=== PATIENT | male | born 1970 | race Caucasian/White ===

== ENCOUNTER 2016-12-19 00:01 | Emergency (ER) | payer MEDICAID ==
[~2016-12-19] VITALS: Ht 175.3 cm; Wt 99.8 kg
[~2016-12-19 00:01] MED LIST: AMITRIPTYLINE25 MG PO; AZITHROMYCIN250 MG PO; CEFDINIR 300MG300 MG PO; CIPRO 500MG TA500 MG PO; CORTISPORIN (GE10 M1 OT; LEVAQUIN500 MG PO; LORTAB 5/500 501 TAB PO; NEXIUM20 MG PO; NOMEDS; OXYCODONE HCL15 MG PO; PERCOCET 10 MG1 EACH PO; PREDNISONE 10MG10 MG PO; VOLTAREN75 MG PO; XANAX 1MG TABLET1 MG PO; ZITHROMAX Z-PA250 M1 PO
[2016-12-19] MEDS ORDERED: NEURONTIN400 M1 PO (00:28)
--- OUTSIDE RECORDS SUMMARY | 2016-12-19 00:34 | External Medical Summary Rpt | CCD ---
Author Author , CARIDAD MCLEAN Address Unknown Phone [email or web address] Name Relationship Address Phone JOSEPHINE, Next Of Kin [address]1 [facility] [phone] , [place] [address] Care Team Providers Care Tester Regulator Name Role Phone Sima Patsy INTERNET MARKETING ASSISTANT, Unavailable Unavailable Sima Garner INTERNET MARKETING ASSISTANT Purpose Continuity of Care Document - 07-30-2012 through 2016 Problems Code Diagnosis DOS Provider Status E11.9 Type 2 10-28-2014 diabetes mellitus without complicatio ns 276.8 Hypokalemia [facility] 724.5 Chronic [place] back pain [facility] 728.88 Rhabdomyoly [facility] 977.9 Drug [place] overdose [facility] K52.9 Noninfectiv e gastroenter itis and colitis, unspecified L72.0 Epidermal cyst M54.16 Radiculopat hy, lumbar region R11.2 Nausea with vomiting, unspecified Z72.0 Tobacco use Z79.899 Other fdc (current) drug therapy Allergies, Adverse Reactions, Alerts Type Drug Allergy Adverse Reaction to Substance Substance Reaction Severity Penicillin I-RASH Intermediate Medications Na ND Rx Da Fi Fi Am Da Di Ph RX Ph St me C No te ll ll ou ys ag ar # ys at rm s nt no ma ic us Or Da si cy ia de te s n re d PO 00 06 0 No TA 40 -1 SS 99 7- Lo IU 25 20 ng M 73 13 er CL 9 Ac 20 ti ve ME Q- 0. 45 % NA CL Ni 00 06 0 No co 06 -1 ti 70 7- Lo ne 81 20 ng 02 13 er 21 1 MG Ac /2 ti 4H ve R Pa tc h SO 00 06 0 No DI 40 -1 UM 97 6- Lo 98 20 ng CH 30 13 er LO 9 RI Ac DE ti ve 0. 9% SO MELISSA TI ON Sa 63 06 1 No li 80 -1 ne 70 6- Lo 10 20 ng Fl 07 13 er us 5 h Ac 10 ti ML ve Sy ri ng e SO 00 06 0 No DI 40 -1 UM 96 6- Lo 63 20 ng BI 73 13 er CA 4 RB Ac ti 8. ve 4% AB VENICE JE CT LO 00 06 0 No RA 64 -1 ZE 16 6- Lo PA 04 20 ng M 82 13 er 2 5 MG Ac /M ti L ve AL Sa 63 06 1 No li 80 -1 ne 70 6- Lo 10 20 ng Fl 07 13 er us 5 h Ac 10 ti ML ve Sy ri ng e Vital Signs 07-31-2012 19:49 Name Value Interpretat Reference Comment ion Range Body 98.1 [degF] Temperature BP 70 mm[Hg] Diastolic BP Systolic 137 mm[Hg] Heart 127 /min Rate/Pulse O2% 96 % Respiratory 22 /min Rate 07-30-2012 12:55 Name Value Interpretat Reference Comment ion Range Height 177.80 cm Weight 98.941 kg Measured 07-30-2012 09:14 Name Value Interpretat Reference Comment ion Range BP 71 mm[Hg] Diastolic BP Systolic 123 mm[Hg] 07-30-2012 08:23 Name Value Interpretat Reference Comment ion Range Body 97.8 [degF] Temperature Heart 90 /min Rate/Pulse O2% 92 % Respiratory 22 /min Rate Weight 0 [oz_av] Measured Results Labs Lab Lab Date Result Refere Interp Status Commen Order Detail nces retati t Range on BASIC METABOLIC PANEL (07-31-2012 05:10) Glucose 90 74-106 complet 013 mg/dL ed Bld-mCn 05:10 c BUN 8 mg/dL 7-18 complet Bld-mCn 013 ed c 05:10 Creat 0.9 0.8-1.3 complet SerPl-m 013 mg/dL ed Cnc 05:10 ESTIMAT 148 50-200 complet ED 013 ML/MIN ed CREATIN 05:10 INE CLEARAN CE GFR 92 Greater complet (ESTIMA 013 ML/MIN than ed TIFFANIE) 05:10 60 Sodium 141 136-145 complet SerPl-s 013 mmoL/L ed Cnc 05:10 Potassi 3.4 3.5-5.1 complet um 013 mmoL/L ed SerPl-s 05:10 Cnc Chlorid 06-17-2 107 98-107 complet e 013 mmoL/L ed SerPl-s 05:10 Cnc CO2 -17-2 26 21.0-32 complet SerPl-s 013 mmoL/L .0 ed Cnc 05:10 Calcium -17-2 7.9 8.5-10. complet 013 mg/dL 1 ed SerPl-m 05:10 Cnc CBC with AUTO DIFF (07-31-2012 05:10) WBC # 06-17-2 12.4 4.8-10. complet Bld 013 K/MM3 8 ed Auto 05:10 RBC # 06-17-2 4.45 4.6-6.2 complet Bld 013 M/mm3 ed Auto 05:10 Hgb -17-2 13.5 14.1-18 complet Bld-mCn 013 g/dL .0 ed c 05:10 Hct Fr -17-2 39.9 % 42.0-52 complet Bld 013 .0 ed 05:10 MCV RBC -17-2 89.6 fl 82.2-97 complet 013 .8 ed 05:10 MCH RBC -17-2 30.2 pg 27-31.2 complet Qn 013 ed Auto 05:10 MEAN -17-2 33.7 31.8-35 complet CORPUSC 013 g/dl .4 ed ULAR 05:10 HGB CONC RDW RBC -17-2 13.3 % 11.5-17 complet Auto 013 .5 ed 05:10 Platele -17-2 220 142-424 complet t Bld 013 K/mm3 ed Ql 05:10 Manual MEAN -17-2 7.6 fl 7.4-10. complet PLATELE 013 4 ed T 05:10 VOLUME Granulo -17-2 71.7 % 37.0-80 complet cytes 013 .0 ed Fr Bld 05:10 Auto LYMPH % 06-17-2 23.0 % 10-50 complet 013 ed 05:10 Monocyt 06-17-2 4.6 % 1.7-9.3 complet es Fr 013 ed Bld 05:10 Auto Eosinop 06-17-2 0.5 % 0.1-12. complet hil Fr 013 0 ed Bld 05:10 Auto Basophi 06-17-2 0.2 % 0.1-2.0 complet ls Fr 013 ed Bld 05:10 Auto Granulo 06-17-2 8.9 1.3-8.0 complet cytes # 013 K/mm3 ed Bld 05:10 Auto Lymphoc 06-17-2 2.8 0.7-4.5 complet ytes Fr 013 K/mm3 ed Bld 05:10 Auto Monocyt 06-17-2 0.6 0.1-1.0 complet es # 013 K/mm3 ed Bld 05:10 Auto Eosinop 06-17-2 0.1 0.0-0.4 complet hil # 013 K/mm3 ed Bld 05:10 Auto Basophi 06-17-2 0.0 0-0.2 complet ls # 013 K/MM3 ed Bld 05:10 Auto URINALYSIS/COMPLETE (07-30-2012 09:30) URINE 06-16-2 YELLOW YELLOW complet COLOR 013 ed 09:30 URINE 06-16-2 CLEAR CLEAR complet APPEARA 013 ed NCE 09:30 URINE 06-16-2 NEGATIV NEG complet GLUCOSE 013 E ed - 09:30 DIPSTIC K URINE 06-16-2 NEGATIV NEG complet BILIRUB 013 E ed IN - 09:30 DIPSTIC K URINE 06-16-2 NEGATIV NEG complet KETONE 013 E mg/dL ed 09:30 URINE 06-16-2 1.020 1.005-1 complet SPECIFI 013 UNK .030 ed C 09:30 GRAVITY URINE 06-16-2 NEGATIV NEG complet BLOOD 013 E ed 09:30 URINE 06-16-2 6.0 UNK 5.0-8.5 complet PH 013 ed 09:30 URINE 06-16-2 NEGATIV NEG complet PROTEIN 013 E mg/dL ed - 09:30 DIPSTIC K URINE 06-16-2 0.2 NEG complet UROBILI 013 E.U./dL ed NOGEN - 09:30 DIPSTIC K URINE 06-16-2 NEGATIV NEG complet NITRATE 013 E ed - 09:30 DIPSTIC K URINE 06-16-2 NEGATIV NEG complet LEUK 013 E ed ESTERAS 09:30 E URINE 06-16-2 TRACE O complet BACTERI 013 ed A 09:30 COMPREHENSIVE METABOLIC PANEL (07-30-2012 08:45) Glucose 06-16-2 139 74-106 complet 013 mg/dL ed Bld-mCn 08:45 c BUN 07-30-2 16 7-18 complet Bld-mCn 013 mg/dL ed c 08:45 Creat 07-30-2 1.2 0.8-1.3 complet SerPl-m 013 mg/dL ed Cnc 08:45 ESTIMAT 07-30-2 102 50-200 complet ED 013 ML/MIN ed CREATIN 08:45 INE CLEARAN CE GFR 2 66 Greater complet (ESTIMA 013 ML/MIN than ed TIFFANIE) 08:45 60 Sodium 07-30-2 139 136-145 complet SerPl-s 013 mmoL/L ed Cnc 08:45 Potassi 3.9 3.5-5.1 complet um 013 mmoL/L ed SerPl-s 08:45 Cnc Chlorid 105 98-107 complet e 013 mmoL/L ed SerPl-s 08:45 Cnc CO2 28 21.0-32 complet SerPl-s 013 mmoL/L .0 ed Cnc 08:45 Calcium 8.1 8.5-10. complet 013 mg/dL 1 ed SerPl-m 08:45 Cnc Prot 6.8 6.4-8.2 complet SerPl-m 013 gm/dL ed Cnc 08:45 Albumin 07-30-2 3.9 3.4-5.0 complet 013 gm/dL ed SerPl-m 08:45 Cnc Globuli 2.9 1.3-3.2 complet n 013 gm/dL ed Ser-mCn 08:45 c Albumin 2 1.3 UNK 1.1-1.8 complet /Glob 013 ed SerPl-m 08:45 Rto Bilirub 0.7 0.2-1.0 complet 013 mg/dL ed SerPl-m 08:45 Cnc AST 07-30-2 42 U/L 15-37 complet SerPl-c 013 ed Cnc 08:45 ALT 07-30-2 47 U/L 30-65 complet SerPl-c 013 ed Cnc 08:45 ALP 2 84 U/L 50-136 complet SerPl-c 013 ed Cnc 08:45 Acetamin SerPl-mCnc (07-30-2012 08:45) Acetami 06-16-2 0 ug/mL 10-30 complet n 013 ed SerPl-m 08:45 Cnc Ethanol Bld-mCnc (07-30-2012 08:45) Ethanol 06-16-2 0 mg/dL 0-99 complet 013 ed Bld-mCn 08:45 c Salicylates SerPl-mCnc (07-30-2012 08:45) Salicyl 06-16-2 3.4 2.8-20. complet ates 013 mg/dL 0 ed SerPl-m 08:45 Cnc CBC with AUTO DIFF (07-30-2012 08:45) WBC # 06-16-2 16.9 4.8-10. complet Bld 013 K/MM3 8 ed Auto 08:45 RBC # 06-16-2 4.89 4.6-6.2 complet Bld 013 M/mm3 ed Auto 08:45 Hgb 06-16-2 14.7 14.1-18 complet Bld-mCn 013 g/dL .0 ed c 08:45 Hct Fr 06-16-2 43.6 % 42.0-52 complet Bld 013 .0 ed 08:45 MCV RBC 06-16-2 89.1 fl 82.2-97 complet 013 .8 ed 08:45 MCH RBC 06-16-2 30.1 pg 27-31.2 complet Qn 013 ed Auto 08:45 MEAN 06-16-2 33.8 31.8-35 complet CORPUSC 013 g/dl .4 ed ULAR 08:45 HGB CONC RDW RBC 06-16-2 13.2 % 11.5-17 complet Auto 013 .5 ed 08:45 Platele 06-16-2 252 142-424 complet t Bld 013 K/mm3 ed Ql 08:45 Manual MEAN 06-16-2 7.5 fl 7.4-10. complet PLATELE 013 4 ed T 08:45 VOLUME Granulo 06-16-2 84.7 % 37.0-80 complet cytes 013 .0 ed Fr Bld 08:45 Auto LYMPH % 06-16-2 10.2 % 10-50 complet 013 ed 08:45 Monocyt 06-16-2 4.4 % 1.7-9.3 complet es Fr 013 ed Bld 08:45 Auto Eosinop 06-16-2 0.6 % 0.1-12. complet hil Fr 013 0 ed Bld 08:45 Auto Basophi 06-16-2 0.2 % 0.1-2.0 complet ls Fr 013 ed Bld 08:45 Auto Granulo -16-2 14.3 1.3-8.0 complet cytes # 013 K/mm3 ed Bld 08:45 Auto Lymphoc 06-16-2 1.7 0.7-4.5 complet ytes Fr 013 K/mm3 ed Bld 08:45 Auto Monocyt 06-16-2 0.8 0.1-1.0 complet es # 013 K/mm3 ed Bld 08:45 Auto Eosinop 06-16-2 0.1 0.0-0.4 complet hil # 013 K/mm3 ed Bld 08:45 Auto Basophi 06-16-2 0.0 0-0.2 complet ls # 013 K/MM3 ed Bld 08:45 Auto ARTERIAL BLOOD GAS (07-30-2012 08:22) ARTERIA 07-30-2 7.40 7.35-7. complet L PH 013 MMOL/L 45 ed 08:22 ARTERIA 16-2 36.0 35.0-45 complet L PCO2 013 MMHG .0 ed 08:22 ARTERIA 07-30-2 107.0 80-100 complet L PO2 013 MMHG ed 08:22 ARTERIA 16-2 22.0 22.0-26 complet L HCO3 013 MMOL/L .0 ed 08:22 ARTERIA 16-2 21.0 23-27 complet L TCO2 013 MMOL/L ed 08:22 Base 07-30-2 -2.4 -2.4-+2 complet excess 013 MMOL/L .3 ed BldA-sC 08:22 nc ARTERIA 2 98 % 90-100 complet L O2 013 ed SAT 08:22 OXYGEN 21 UNK complet 013 ed 08:22 Arteria 07-30-2 ACCEPTA complet l 013 BLE ed patency 08:22 Wrist a SOURCE RIGHT complet 013 RADIAL ed 08:22 Encounters Encounter Start End Date Code Location Performer Type Date Inpatient IMP [place] ([place] 3 09:35 3 20:02 [facility]
--- OUTSIDE RECORDS SUMMARY | 2016-12-19 00:34 | External Medical Summary Rpt | CCD ---
Author Author , CARIDAD MCLEAN Address Unknown Phone [email or web address] Name Relationship Address Phone JOSEPHINE, Next Of Kin [address]1 [facility] [phone] , [place] [address] Care Team Providers Care Substation Supervisor Name Role Phone Sima Patsy BANKING SERVICES ADVISOR, Unavailable Unavailable Sima Garner BANKING SERVICES ADVISOR Purpose Continuity of Care Document - 07-30-2012 through 2016 Problems Code Diagnosis DOS Provider Status E11.9 Type 2 10-28-2014 diabetes mellitus without complicatio ns 276.8 Hypokalemia [facility] 724.5 Chronic [place] back pain [facility] 728.88 Rhabdomyoly [facility] 977.9 Drug [place] overdose [facility] K52.9 Noninfectiv e gastroenter itis and colitis, unspecified L72.0 Epidermal cyst M54.16 Radiculopat hy, lumbar region R11.2 Nausea with vomiting, unspecified Z72.0 Tobacco use Z79.899 Other fci (current) drug therapy Allergies, Adverse Reactions, Alerts [...] [place] ([place]) 3 09:35 3 20:02 [facility]
--- OUTSIDE RECORDS SUMMARY | 2016-12-19 00:35 | External Medical Summary Rpt | CCD ---
Demographics Preferred Language Singaporean Marital Status Unknown Voodoo Affiliation Unknown Race Unknown Ethnic Group Unknown Author Author , JOVI MCLEAN Address Unknown Phone Immunization Unable to retrieve immunization data due to connection failure with Immunization Registry. Please try again later.
--- OUTSIDE RECORDS SUMMARY | 2016-12-19 00:35 | External Medical Summary Rpt | CCD ---
Demographics Address [address] [place] [address] Preferred Language Faroese Marital Status Unknown Mu-Ism Affiliation Unknown Race W Ethnic Group Unknown Author Author Conduent Organization Conduent Address Unknown Phone Unavailable Purpose Continuity of Care Document - through 2016
--- OUTSIDE RECORDS SUMMARY | 2016-12-19 00:35 | External Medical Summary Rpt | CCD ---
Demographics Address [address] [place] [address] Preferred Language Khmer Marital Status Unknown Worship Affiliation Unknown Race W Ethnic Group Unknown Author Author Conduent Organization Conduent Address Unknown Phone Unavailable Purpose Continuity of Care Document - through 2016
--- OUTSIDE RECORDS SUMMARY | 2016-12-19 00:35 | External Medical Summary Rpt | CCD ---
Demographics Preferred Language [place] Islander Marital Status Unknown Episcopal Affiliation Unknown Race Unknown Ethnic Group Unknown Author Author , JOVI MCLEAN Address Unknown Phone Immunization Unable to retrieve immunization data due to connection failure with Immunization Registry. Please try again later.
--- OUTSIDE RECORDS SUMMARY | 2016-12-19 00:36 | External Medical Summary Rpt ---
Demographics Address [address] [place] [address] Home Phone Preferred Language Unknown Marital Status Unknown Mormon Affiliation Unknown Race Unknown Ethnic Group Unknown Author Author CARIDAD Kendall, [employer] Organization [employer] Address Unknown Phone Unavailable Results Glu Bed Observa Value Referen Units Interpr Notes Date tion ce etation Range GLU BED 107 70 - mg/dL High No Oct 14 100 informa 2017 tion in 11:50 source AM data Sample Capilla No No No No Oct 14 Type ry informa informa informa informa 2017 tion in tion in tion in tion in 11:50 source source source source AM data data data data Patient Non-Cri No No No No Oct 14 tical informa informa informa informa 2017 Critica Patient tion in tion in tion in tion in 11:50 l source source source source AM Status data data data data [facility] Observa Value Referen Units Interpr Notes Date tion ce etation Range Codeine Not No No No No June 25 Detecte informa informa informa informa 2016 (cutoff d tion in tion in tion in tion in 11:56 40 source source source source AM ng/mL)- data data data data [facility] Morphin Not No No No No June 25 e Detecte informa informa informa informa 2016 (cutoff d tion in tion in tion in tion in 11:56 20 source source source source AM ng/mL)- data data data data [facility] 6-acety Not No No No No June 25 lmorphi Detecte informa informa informa informa 2016 ne d tion in tion in tion in tion in 11:56 (cutoff source source source source AM 20 data data data data ng/mL)- [facility] Oxycodo Not No No No No June 25 ne Detecte informa informa informa informa 2016 (cutoff d tion in tion in tion in tion in 11:56 40 source source source source AM ng/mL)- data data data data [facility] Noroxyc Not No No No No June 25 odone Detecte informa informa informa informa 2016 (cutoff d tion in tion in tion in tion in 100 source source source source AM ng/mL)- data data data data [facility] Oxymorp Not No No No No June 25 ramin Detecte informa informa informa informa 2016 (cutoff d tion in tion in tion in tion in 40 source source source source AM ng/mL)- data data data data [facility] Noroxym Not No No No No June 25 orphone Detecte informa informa informa informa 2016 d tion in tion in tion in tion in (cutoff source source source source AM 100 data data data data ng/mL)- [facility] Hydroco Not No No No No June 25 done Detecte informa informa informa informa 2016 (cutoff d tion in tion in tion in tion in 40 source source source source AM ng/mL)- data data data data [facility] Norhydr Not No No No No June 25 ocodone Detecte informa informa informa informa 2016 d tion in tion in tion in tion in (cutoff source source source source AM 100 data data data data ng/mL)- [facility] Hydromo Not No No No No June 25 rphone Detecte informa informa informa informa 2016 (cutoff d tion in tion in tion in tion in 40 source source source source AM ng/mL)- data data data data [facility] Bupreno Not No No No No June 25 rphine Detecte informa informa informa informa 2016 (cutoff d tion in tion in tion in tion in 5 source source source source AM ng/mL)- data data data data [facility] Norbupr Not No No No No June 25 enorphi Detecte informa informa informa informa 2016 ne d tion in tion in tion in tion in (cutoff source source source source AM 20 data data data data ng/mL)- [facility] Fentany Not No No No No June 25 l Detecte informa informa informa informa 2016 (cutoff d tion in tion in tion in tion in 2 source source source source AM ng/mL)- data data data data [facility] Norfent Not No No No No June 25 anyl Detecte informa informa informa informa 2016 (cutoff d tion in tion in tion in tion in 11:56 2 source source source source AM ng/mL)- data data data data [facility] Meperid Not No No No No June 25 ine Detecte informa informa informa informa 2017 metabol d tion in tion in tion in tion in 11:56 ite source source source source AM (cutoff data data data data 50 ng/mL) Tapenta Not No No No No June 25 dol Detecte informa informa informa informa 2016 (cutoff d tion in tion in tion in tion in 11:56 100 source source source source AM ng/mL)- data data data data [facility] Tapenta Not No No No No June 25 dol-o-S Detecte informa informa informa informa 2016 ulf d tion in tion in tion in tion in 11:56 (cutoff source source source source AM 200 data data data data ng/mL)- [facility] Methado Not No No No No June 25 ne Detecte informa informa informa informa 2016 (cutoff d tion in tion in tion in tion in 11:56 150 source source source source AM ng/mL)- data data data data [facility] Propoxy Not No No No No June 25 phene Detecte informa informa informa informa 2016 (cutoff d tion in tion in tion in tion in :56 300 source source source source AM ng/mL)- data data data data [facility] Tramado Present No No No No June 25 l informa informa informa informa 2016 (cutoff tion in tion in tion in tion in 11:56 200 source source source source AM ng/mL)- data data data data [facility] Ampheta Not No No No No June 25 mine Detecte informa informa informa informa 2016 (cutoff d tion in tion in tion in tion in 11:56 100 source source source source AM ng/mL)- data data data data [facility] Methamp Not No No No No June 25 hetamin Detecte informa informa informa informa 2017 e d tion in tion in tion in tion in 11:56 (cutoff source source source source AM 400 data data data data ng/mL)- [facility] MDMA- Not No No No No June 25 Ecstasy Detecte informa informa informa informa 2017 d tion in tion in tion in tion in 11:56 (cutoff source source source source AM 200 data data data data ng/mL)- [facility] MDA Not No No No No June 25 (cutoff Detecte informa informa informa informa 2016 200 d tion in tion in tion in tion in :56 ng/mL)- source source source source AM [facility] data data data data MDEA- Not No No No No June 25 Nina Detecte informa informa informa informa 2016 (cutoff d tion in tion in tion in tion in :56 200 source source source source AM ng/mL)- data data data data [facility] Methylp Not No No No No June 25 henidat Detecte informa informa informa informa 2016 e d tion in tion in tion in tion in :56 (cutoff source source source source AM 100 data data data data ng/mL)- [facility] Phenter Not No No No No June 25 mine Detecte informa informa informa informa 2016 (cutoff d tion in tion in tion in tion in :56 100 source source source source AM ng/mL)- data data data data [facility] Benzoyl Not No No No No June 25 ecgonin Detecte informa informa informa informa 2016 e d tion in tion in tion in tion in 11:56 (cutoff source source source source AM 150 data data data data ng/mL)- [facility] Alprazo Not No No No No June 25 [address] Detecte informa informa informa informa 2016 (cutoff d tion in tion in tion in tion in 11:56 40 source source source source AM ng/mL)- data data data data [facility] Alpha-O Not No No No No June 25 H-Alpra Detecte informa informa informa informa 2017 zolam d tion in tion in tion in tion in 11:56 (cutoff source source source source AM 20 data data data data ng/mL)- [facility] Clonaze Not No No No No June 25 amada Detecte informa informa informa informa 2017 (cutoff d tion in tion in tion in tion in :56 20 source source source source AM ng/mL)- data data data data [facility] 7-Amino Not No No No No June 25 clonaze Detecte informa informa informa informa 2017 amada d tion in tion in tion in tion in 11:56 (cutoff source source source source AM 40 data data data data ng/mL)- [facility] Diazepa Not No No No No June 25 m Detecte informa informa informa informa 2017 (cutoff d tion in tion in tion in tion in :56 50 source source source source AM ng/mL)- data data data data [facility] Nordiaz Not No No No No June 25 epam Detecte informa informa informa informa 2016 (cutoff d tion in tion in tion in tion in : 50 source source source source AM ng/mL)- data data data data [facility] Oxazepa Not No No No No June 25 m Detecte informa informa informa informa 2017 (cutoff d tion in tion in tion in tion in : 50 source source source source AM ng/mL)- data data data data [facility] Temazep Not No No No No June 25 am Detecte informa informa informa informa 2017 (cutoff d tion in tion in tion in tion in :56 50 source source source source AM ng/mL)- data data data data [facility] Lorazep Not No No No No June 25 am Detecte informa informa informa informa 2017 (cutoff d tion in tion in tion in tion in :56 60 source source source source AM ng/mL)- data data data data [facility] Midazol Not No No No No June 25 am Detecte informa informa informa informa 2017 (cutoff d tion in tion in tion in tion in :56 20 source source source source AM ng/mL)- data data data data [facility] Zolpide Not No No No No June 25 m Detecte informa informa informa informa 2017 (cutoff d tion in tion in tion in tion in :56 20 source source source source AM ng/mL)- data data data data [facility] Barbitu Not No No No No May 12 rates Detecte informa informa informa informa 2017 (cutoff d tion in tion in tion in tion in 11:56 200 source source source source AM ng/mL)- data data data data [facility] Creatin 119.1 20.0 - mg/dL No No June 25 ine, 400.0 informa informa 2017 Urine-A tion in tion in 11:56 [facility] source source AM data data Ethyl Not No No No No June 25 Glucuro Detecte informa informa informa informa 2017 nide d tion in tion in tion in tion in 11:56 (cutoff source source source source AM 500 data data data data ng/mL)- [facility] Marijua Not No No No No June 25 na Detecte informa informa informa informa 2017 Metabol d tion in tion in tion in tion in 11:56 ite source source source source AM (cutoff data data data data 20 ng/mL)- A PCP Not No No No No June 25 (cutoff Detecte informa informa informa informa 2017 25 d tion in tion in tion in tion in 11:56 ng/mL)- source source source source AM [facility] data data data data Carisop Not No No No \.br\June 25 rodol Detecte informa informa informa e 2017 (cut-of d tion in tion in tion in carisop 11:56 f 100 source source source rodol AM ng/mL)- data data data immunoa [facility] ssay has cross-r eactivi ty [facility]\. br\and meproba mate. Pain See No No No Methodo June 25 Managem Below informa informa informa logy: 2017 ent tion in tion in tion in Qualita 11:56 Drug source source source tive AM Panel-A data data data Enzyme [facility] Immunoa ssay and Qualita tive Liquid\ .br\Chr omatogr aphy-Ti me of Flight- Mass Spectro metry, Quantit ative\. br\Spec trophot ometry\ .br\The absence of expecte d drug(s) and/or drug metabol ite(s) may\.br \indica te non-com pliance , inappro priate timing of specime n\.br\c ollecti on relativ e to drug adminis tration , poor drug absorpt ion,\.b r\dilut ed/adul terated urine, or limitat ions of testing . The\.br \concen tration must be greater than or equal to the cutoff to be\.br\ reporte d as present . If specifi c drug concent rations are\.br \requir ed, contact the laborat ory within two weeks of specime n\.br\c ollecti on to request quantif ication by a second analyti amaris\.br \techni que. Interpr etive questio ns should be directe d to the\.br \labora tory.\. br\Resu lts based on immunoa ssay detecti on that do not match clinica l\.br\e xpectat ions should be\.br\ interpr eted with caution . Confirm atory testing by mass\.b r\spect rometry for immunoa ssay-ba sed results is availab le, if\.br\ ordered within two weeks of specime n collect ion. Additio nal\.br \charge s apply.\ .br\For medical purpose s only; not valid for forensi c use.\.b r\This test was develop ed and its perform ance charact eristic s\.br\d etermin ed by JOSEPHINE buck. The U.S. Food and Drug\.b r\Admin istrati on has not approve d or cleared this test; however , FDA\.br \cleara nce or approva l is not current ly require d for clinica l use.\.b r\The results are not intende d to be used as the sole means for\.br \clinic al diagnos is or patient managem ent decisio ns. EER See No No No Access June 25 Pain Note informa informa informa [facility] 2016 Mgt tion in tion in tion in Enhance 11:56 Drug source source source d AM Panel, data data data Report High using Res/URBANO either T U link below:\ .br\\.b r\-Dire ct access: [email or web address]:/ [email or web address] [id number]\ .br\\.b r\-Ente r Usernam e, Passwor d: [email or web address]:/ [email or web address] [employer] [place]\.br \ Usernam e: [id number]\ .br\ Passwor d: [id number]?K \.br\Pe rformed by JOSEPHINE buck,\ .br\[address] [facility] [place] [address] \. br\www. Meddle, Saul Cole MD - Lab. Directo r IR LUMBAR/SACRAL ADEN WITH GUIDANCE Observa Value Referen Units Interpr Notes Date tion ce etation Range L L4/5 DICTATI No No No No May 14 NG informa informa informa informa 2016 PHYSICI tion in tion in tion in tion in 8:38 AM AN: source source source source data data data data Benine Brown M.D.\.b r\PREOP ERATIVE DIAGNOS ES: Lumbar radicul opathy\ .br\POS TOPERAT KIN DIAGNOS ES: Lumbar radicul opathy M54.12\ .br\OPE RATIVE PROCEDU RES: Lumbar epidura l steroid injecti on under fluoros copic\. br\guid ance at left L4/5 level .\.br\S URGEON: Bennie Brown M.D.\.b r\\.br\ INDICAT IONS:\. br\Lumb ar radicul opathy\ .br\\.b r\OPERA TIVE PROCEDU RE:\.br \Consen t signed by patient after risks and benefit s explain ed. Patient was\.br \in\.br \prone positio n. Lumbar region was prepped with Prevail and draped. Aseptic \.br\te chnique used at every stage of the procedu re. Skin wheal with 1%\.br\ Lidocai ne\.br\ with 30-gaug e needle. 20-gaug e Tuohy needle placed under AP fluoros copic\. br\guid ance to contact the superio r part of the lamina at L4/5 level on the\.br \left\. br\side . The spinous process was in midline . The needle was then advance d\.br\a nterior ly and superio rly under fluoros copic guidanc e into the interla minar\. br\epid ural space with the help of loss of resista nce techniq ue. Aspirat ion\.br \was\.b r\negat kin for CSF and heme. Injecti on of Omnipaq ue dye 5ml showed\ .br\erum ropriat e\.br\s pread confirm ing epidura l needle placeme nt.80 mg of Depo-Me drol was\.br \inject ed.\.br \Needle pulled out intact. Patient tolerat ed procedu re well. Dischar ge\.br\ instruc tions were given. Injecti on under low pressur e.\.br\ IMPRESS ION:\.b r\Impre ssion: Success ful epidura l steroid injecti on perform ed on the left at\.br\ L4-5.\. br\ MRI LUMBAR SPINE WO CONTRAST Observa Value Referen Units Interpr Notes Date tion ce etation Range \.br\MR No No No No Mar 25 I informa informa informa informa 2017 LUMBAR tion in tion in tion in tion in 10:24 SPINE, source source source source AM WITHOUT data data data data CONTRAS T, 7\.br\\ .br\IND ICATION S: Back pain, left lower extremi ty radicul opathy. \.br\\. br\FIND INGS: Noncont rast MRI lumbar spine perform ed.\.br \\.br\C OMPARIS ON: Lumbar radiogr aphs July 02, 2015 and MRI lumbar spine July 20,\.br\ 2010.\. br\\.br \T12-L1 , L1-L2, and L2-L3 levels are intact. \.br\\. br\L3-L 4 shows no disc bulge or neural encroac hment.\ .br\\.b r\L4-L5 shows disc desicca tion with left foramin al bulge. There is left\.b r\partha inal\.b r\narro wing. Lateral recesse s, central canal and right foramen are patent. \.br\Th ere\.br \is mild facet hypertr ophy present . Left foramin al narrowi ng has progres sed\.br \from\. br\the compari son study.\ .br\\.b r\L5-S1 level shows facet hypertr ophy without disc bulge. Foramin a, lateral \.br\re cesses and central canal are patent. \.br\\. br\No acute or aggress kin abnorma l vertebr al body marrow replace ment. Conus is\.br\ normal in positio n and appeara nce.\.b r\\.br\ IMPRESS ION:\.b r\1. Left foramin al narrowi ng L4-L5 due to asymmet guanaco disc bulge superim posed\. br\on\. br\face t hypertr ophy.\. br\2. Facet degener ative changes L5-S1 without neural encroac hment noted.\ .br\ Glyco Observa Value Referen Units Interpr Notes Date tion ce etation Range Hemoglo 5.5 <=7.0 % No Referen Feb 15 bin informa ce 2016 A1c/Hem tion in Interva 5:16 PM oglobin source l for .total data Hgb in A1c\.br Blood \\.br\H gb A1c Interpr etation \.br\-- ------- -- ------- ------- --\.br\ \.br\ < 6.0 Non-Dafne betic Range\. br\6.0 - 7.0 ADA Therape utic Target\ .br\ > 7.0 Action suggest ed Lipid Scr Observa Value Referen Units Interpr Notes Date tion ce etation Range Cholest 130 <=200 mg/dL No < 200 Feb 15 breanna informa 2016 [Percen tion in 4:49 PM tile] source Desirab data le\.br\ 200 - 239 Borderl ine High\.b r\>= 240 High TRIGLYC 187 <=150 mg/dL High < 150 Feb 15 ERIDES. 2017 TOTAL Normal\ 4:49 PM .br\150 - 199 Borderl ine High\.b r\200 - 499 High\.b r\ >= 500 Very High CHOLEST 20 >=40 mg/dL Low > 60 Feb 15 EROLS.I 2017 N HDL Optimal 4:49 PM \.br\40 - 60 Accepta ble\.br \ < 40 Low LDL 73 <=100 mg/dL No < 100 Feb 15 Calcula informa 2017 tony tion in 4:49 PM source Optimal data \.br\10 0 - 129 Near or above optimal \.br\13 0 - 159 Borderl ine High\.b r\160 - 189 High\.b r\ >= 190 Very High TSH Observa Value Referen Units Interpr Notes Date tion ce etation Range Thyrotr 1.600 0.270 - mcIU/mL No No Feb 15 opin 4.200 informa informa 2016 [Units/ tion in tion in 4:49 PM volume] source source in data data Serum or Plasma Free T4 Observa Value Referen Units Interpr Notes Date tion ce etation Range Thyroxi 1.30 0.80 - ng/dL No No Feb 15 ne (T4) 2.00 informa informa 2017 free tion in tion in 4:49 PM [Mass/v source source olume] data data in Serum or Plasma Auto Diff Observa Value Referen Units Interpr Notes Date tion ce etation Range Neutrop 73.9 No % No No Feb 15 hils informa informa informa 2016 [#/volu tion in tion in tion in 4:05 PM me] in source source source Blood data data data by Automat ed count Lymphoc 17.0 No % No No Feb 15 ytes informa informa informa 2016 [#/volu tion in tion in tion in 4:05 PM me] in source source source Blood data data data by Automat ed count Monocyt 7.7 No % No No Feb 15 es informa informa informa 2016 [#/volu tion in tion in tion in 4:05 PM me] in source source source Blood data data data by Automat ed count Eos 1.0 No % No No Feb 15 Percent informa informa informa 2017 tion in tion in tion in 4:05 PM source source source data data data Baso 0.4 No % No No Feb 15 Percent informa informa informa 2017 tion in tion in tion in 4:05 PM source source source data data data Neut# 10.9 1.8 - x10(3)/ High No Feb 15 7.7 mcL informa 2017 tion in 4:05 PM source data Lymph# 2.5 0.6 - x10(3)/ No No Feb 15 4.8 mcL informa informa 2017 tion in tion in 4:05 PM source source data data [place]# 1.1 0.0 - x10(3)/ No No Feb 15 1.3 mcL informa informa 2017 tion in tion in 4:05 PM source source data data Eos# 0.1 0.0 - x10(3)/ No No Feb 15 0.5 mcL informa informa 2017 tion in tion in 4:05 PM source source data data Baso# 0.1 0.0 - x10(3)/ No No Feb 15 0.2 mcL informa informa 2017 tion in tion in 4:05 PM source source data data CBC Observa Value Referen Units Interpr Notes Date tion ce etation Range LEUKOCY 14.7 4.0 - x10(3)/ High No Feb 15 BECCA 11.0 mcL informa 2017 tion in 4:05 PM source data Erythro 5.07 4.30 - x10(6)/ No Feb 15 cytes 5.81 mcL informa informa 2016 [#/volu tion in tion in 4:05 PM me] in source source Blood data data by Automat ed count Hemoglo 15.1 13.5 - gm/dL No Feb 15 bin 17.1 informa informa 2016 [Mass/v tion in tion in 4:05 PM olume] source source in data data Blood Hematoc 46.3 38.9 - % No Feb 15 rit 51.6 informa informa 2016 [Volume tion in tion in 4:05 PM source source Fractio data data n] of Blood by Automat ed count Erythro 91.3 82.5 - fL No Feb 15 cyte 99.8 informa informa 2016 mean tion in tion in 4:05 PM corpusc source source ular data data volume [Entiti c volume] by Automat ed count Erythro 29.8 27.0 - pg No Feb 15 cyte 34.3 informa informa 2016 mean tion in tion in 4:05 PM corpusc source source ular data data hemoglo bin [Entiti c mass] by Automat ed count Erythro 32.7 32.1 - gm/dL No No Feb 15 cyte 35.3 informa informa 2016 mean tion in tion in 4:05 PM corpusc source source ular data data hemoglo bin concent ration [Mass/v olume] by Automat ed count Erythro 13.7 11.5 - % No No Feb 15 cyte 15.0 informa informa 2016 distrib tion in tion in 4:05 PM ution source source width data data [Ratio] by Automat ed count Platele 250 144 - x10(3)/ No No Feb 15 ts 423 mcL informa informa 2016 [#/volu tion in tion in 4:05 PM me] in source source Blood data data by Automat ed count MPV 8.9 6.8 - fL No No Feb 15 10.8 informa informa 2016 tion in tion in 4:05 PM source source data data XR LUMBAR SPINE AP AND LATERAL Observa Value Referen Units Interpr Notes Date tion ce etation Range \.br\XR No No No No July 01 LUMBAR informa informa informa informa 2016 SPINE tion in tion in tion in tion in 10:21 AP AND source source source source AM LATERAL data data data data 07/02/19 16 10:21 AM\.br\ \.br\HI STORY: M54.5-L ow back pain-IC D-10-CM \.br\W1 9.XXXA- Unspeci fied fall, initial encount er-ICD- 10-CM.\ .br\\.b r\\.br\ \.br\CO MPARE: Prior lumbar MRIs\.b r\\.br\ FINDING S:\.br\ \.br\Th ere is scolios is convex to the left mild to moderat e in degree. There is\.br\ mild\.b r\multi level discoge yoan change with disc space narrowi ng. Mild facet\. br\arth ropathy \.br\pr esent at L5-S1. No alfonzo gonzalez fractur es identif ied\.br \\.br\I MPRESSI ON:\.br \\.br\M ild to moderat e scolios is and mild multile ariel spondyl itic change. If\.br\ there is\.br\ strong concern for radicul opathy or myelopa thy MRI study of choice\ .br\ Glu Bed Observa Value Referen Units Interpr Notes Date tion ce etation Range GLU BED 103 70 - mg/dL High No May 7 100 informa 2016 tion in 10:45 source AM data XR CHEST PA AND LATERAL Observa Value Referen Units Interpr Notes Date tion ce etation Range \.br\XR No No No No Mar 20 CHEST informa informa informa informa 2016 PA AND tion in tion in tion in tion in 3:50 PM LATERAL source source source source data data data data 6 3:50 PM\.br\ \.br\HI STORY: R07.89- Other chest pain-IC D-10-CM \.br\J1 8.9-Pne umonia, unspeci fied organis m-ICD-1 0-CM\.b r\\.br\ Focal linear scar atelect asis at the left base. Lungs are otherwi se clear.\ .br\Hea rt\.br\ and mediast inal structu res are within normal limits. \.br\\. br\IMPR ESSION: No acute disease .\.br\ Colonoscopy Observa Value Referen Units Interpr Notes Date tion ce etation Range Colonos Colonos No No No No Nov 25 copy copy informa informa informa informa 2014 Report\ tion in tion in tion in tion in 11:45 .br\Kris source source source source AM e: data data data data 015 11:45 AM\.br\ Patient Name: CANDELARIA BURTON\. br\Gend er: Male\.b r\\.br\ 9\.br\D OB(age) : 89 (44)\.b r\\.br\ Endosco pist(s) :\.br\D al Donovan MD\.br\ \.br\\. br\\.br \\.br\\ .br\Ref erring Physici an(s):\ .br\MARITZA Louis DONOVAN\. br\[address], [place] [address]\. [phone] (phone) \.br\([phone] (fax)\. br\\.br \ASA Class: P2 - 015 12:38:0 6 PM [place]\. br\\.br \\.br\H istory of Present Illness :\.br\T he patient complai ns of abdomin al pain. Symptom s began several months ago.\.b r\It is localiz ed as left lower quadran t and suprapu bic pain. It is detaile d as\.br\ severe in nature. Pain quality is describ ed as sharp, stabbin g and colicky . It\.br\ also radiate s to the inguina l region. Discomf ort typical ly lasts 1 - 3 hours.\ .br\It usually starts abruptl y. Symptom s have been non-pro gressiv e/stabl e since\. br\onse t. Alarm feature s noted: blood in the stool. The patient also reports \.br\na usea. Symptom s have caused the patient to miss work. Notewor thy prior\. br\abdo lissett interve ntions include bowel resecti on.\.br \\.br\A dminist ered Medicat ions: Fentany l 300 mcg IV\.br\ Versed 20 mg IV\.br\ Indicat ions: Abdomin al pain - LLQ: 789.04 - R10.32\ .br\Pro cedure: \.br\Th e procedu re, indicat ions, prepara tion and potenti al complic ations were\.b r\expla ined to the patient , who indicat ed underst anding and signed the\.br \corres ponding consent forms. Conscio us sedatio n was adminis tered. Continu ous\.br \pulse oximetr y, blood pressur e, and air sampling and monitoring ing was done. Supplem ental\. br\oxyg en was used. The quality of prepara tion was Good. Patient was placed in left\.b r\later al decubit us positio n. The colonos cope was introdu allan through rectum and\.br \advanc ed under direct visuali zation until cecum and termina l ileum was reached \.br\Th e appendi ceal orifice and the ileo-ce amaris valve were identif ied. The termina l\.br\i leum was identif ied. The colonos cope was retrofl exed within the rectum. Careful \.br\vi sualiza tion was perform ed as the instrum ent was withdra wn. There were no\.br\ apparen t limitat ions or complic ations. Patient toleran ce to procedu re was\.br \excell ent. The procedu re was not difficu lt. Digital exam was normal with the\.br \follow ing finding s: Prostat e normal without evidenc e of focal nodular ity\.br \\.br\L imitati ons/Com plicati ons: Excitab ility with conscio us sedatio n. Recomme nd\.br\ future endosco pies be done with dipriva n.\.br\ Finding s:\.br\ Mucosa Normal mucosa was noted in the whole colon and termina l ileum.\ .br\\.b r\Impre ssions: \.br\No rmal mucosa in the whole colon and termina l ileum.\ .br\\.b r\Plan: Follow- up office visit in 2-3 weeks\. br\\.br \Cuong Donovan MD\.br\ Electro nically signed on 015 12:43:5 8 PM by Cuong Donovan MD\.br\ Glyco Observa Value Referen Units Interpr Notes Date tion ce etation Range Hemoglo 5.7 <=7.0 % No Initial Sep 16 bin informa 2014 A1c/Hem tion in Diagnos 6:09 AM oglobin source tic .total data Criteri in a\.br\< Blood 5.7 % Normal\ .br\5.7 - 6.4 % At risk for diabete s mellitu s\.br\> = 6.5 % Consist ent with diabete s mellitu s\.br\\ .br\Dafne betes monitor ing\.br \Target Value (ADA recomme nded): < 7 % Lipid Scr Observa Value Referen Units Interpr Notes Date tion ce etation Range Cholest 156 <=200 mg/dL No < 200 Sep 15 breanna informa 2014 [Percen tion in 3:08 PM tile] source Desirab data le\.br\ 200 - 239 Borderl ine High\.b r\>= 240 High TRIGLYC 101 <=150 mg/dL No < 150 Sep 15 ERIDES. informa 2014 TOTAL tion in Normal\ 3:08 PM source .br\150 data - 199 Borderl ine High\.b r\200 - 499 High\.b r\ >= 500 Very High CHOLEST 36 >=40 mg/dL Low > 60 Sep 15 EROLS.I 2014 N HDL Optimal 3:08 PM \.br\40 - 60 Accepta ble\.br \ < 40 Low LDL 100 <=100 mg/dL No < 100 Sep 15 Calcula informa 2014 tony tion in 3:08 PM source Optimal data \.br\10 0 - 129 Near or above optimal \.br\13 0 - 159 Borderl ine High\.b r\160 - 189 High\.b r\ >= 190 Very High Vit D 1,25-SOLS Observa Value Referen Units Interpr Notes Date tion ce etation Range Vitamin 42 18 - 72 pg/mL No No Oct 1 D,1,25 informa informa 2013 (OH)2, tion in tion in 4:46 PM source source Total-S data data OLS Vitamin <8 No pg/mL No Vitamin Oct 1 informa informa D3, 2013 D2,1,25 tion in tion in 1,25(OH 4:46 PM source source )2 (OH)2-S data data indicat OLS es both endogen ous\.br \produc tion and supplem entatio n. Vitamin D2, 1,25(OH )2\.br\ is an indicat or of exogeou s sources , such as diet or\.br\ supplem entatio n. Interpr etation and therapy are based\. br\on measure ment of Vitamin D,1,25( [place])2, Total.\ .br\Thi s test was develop ed and its perform ance\.b r\darren cterist ics have been determi jonathan by [facility]\. br\Diag nostics [facility], [facility] [place], [place].\.br \Perfor venice charact eristic s refer to the\.br \analyt ical perform ance of the test.\. br\Perf ormed at: [facility], [facility]\.b r\ [id number].br \ [facility] [place], [place] Vitamin 42 No pg/mL No No Nov 14 informa informa informa 2013 D3,1,25 tion in tion in tion in 4:46 PM source source source (OH)2-S data data data OLS Glyco Observa Value Referen Units Interpr Notes Date tion ce etation Range Hemoglo 5.7 <=7.0 % No Initial Sep 27 bin informa 2013 A1c/Hem tion in Diagnos 2:32 PM oglobin source tic .total data Criteri in a\.br\< Blood 5.7 % Normal\ .br\5.7 - 6.4 % At risk for diabete s mellitu s\.br\> = 6.5 % Consist ent with diabete s mellitu s\.br\\ .br\Dafne betes monitor ing\.br \Target Value (ADA recomme nded): < 7 % TSH Observa Value Referen Units Interpr Notes Date tion ce etation Range Thyrotr 1.110 0.270 - mcIU/mL No No Sep 26 opin 4.200 informa informa 2013 [Units/ tion in tion in 4:59 PM volume] source source in data data Serum or Plasma Free T3 Observa Value Referen Units Interpr Notes Date tion ce etation Range T3 Free 3.84 2.00 - pg/mL No No Sep 26 4.40 informa informa 2013 tion in tion in 4:59 PM source source data data Free T4 Observa Value Referen Units Interpr Notes Date tion ce etation Range Thyroxi 1.29 0.93 - ng/dL No No Sep 26 ne (T4) 1.70 informa informa 2013 free tion in tion in 4:59 PM [Mass/v source source olume] data data in Serum or Plasma B12/ FA Observa Value Referen Units Interpr Notes Date tion ce etation Range CYANOCO 453 211 - pg/mL No No Sep 26 BALAMIN 946 informa informa 2014 .TRUE tion in tion in 4:55 PM source source data data Folic 4.20 4.50 - ng/mL Low No Sep 26 Acid 37.30 informa 2014 Lvl tion in 4:55 PM source data
--- OUTSIDE RECORDS SUMMARY | 2016-12-19 00:36 | External Medical Summary Rpt ---
Demographics Address [address] [place] [address] Home Phone Preferred Language Unknown Marital Status Unknown Voodoo Affiliation Unknown Race [...] ARUP ssay has cross-r eactivi ty [facility]\. br\and meproba mate. Pain See No [...] below:\ .br\\.b r\-Dire ct access: [email or web address] [id number] [email or web address]\ .br\\.b r\-Ente r Usernam e, Passwor d: [email or web address] [employer]\.br \ Usernam e: [id number]\ .br\ Passwor d: 9Am=n?K \.br\Pe rformed by JOSEPHINE buck,\ .br\[address] [facility] [place] [address] [phone]\. br\www. [employer], Saul Cole MD - Lab. Directo r IR LUMBAR/SACRAL ADEN WITH GUIDANCE Observa Value Referen Units Interpr Notes Date tion ce etation Range L L4/5 DICTATI No No No No May 14 NG informa informa informa informa 2016 PHYSICI tion in tion in tion in tion in 8:38 AM AN: source source source source data data data data Bennie Brown M.D.\.b r\PREOP ERATIVE DIAGNOS ES: Lumbar [...] in 4:05 PM source source data data Glades# 1.1 0.0 - x10(3)/ No No Feb [...] Louis DONOVAN\. br\[address], [place] [facility] [place] [id number]\. br\([phone] (phone) \.br\([phone] (fax)\. br\\.br \ASA Class: P2 - 015 [...] \pulse oximetr y, blood pressur e, and surveillance system monitor ing was done. Supplem ental\. br\oxyg en [...] by [facility]\. br\Di[facility], [facility], [place].\.br \Perfor venice charact eristic s refer to the\.br \analyt ical perform ance of the test.\. br\Perf ormed at: [facility], [facility]\.b r\ [id number].br \ [facility], [place] Vitamin 42 No pg/mL No No [...]
--- NOTE | 2016-12-19 01:06 | Emergency Room Report ---
History of Present Illness Time Seen by 001Cedric Presenting Problem in Triage Pt arrived:Wheelchair Presenting Problem:SLIPPED AND FELL ON AN EMBANKMENT. FELL ON BUTTOCKS. PAIN LOWER BACK AND REPORTS RADIATING PAIN TO LEFT LEG. USED HEATING PAD WITHOUT RELIEF. Onset of symptoms date/time:12/19/1606/30/629 or onset unknown for: Treatment Prior to Arrival: [employer]ER Provided by:SELF Sepsis Risk Assessment: Temp: 98.0 B/P: 124/74 MAP: 85 Pulse: 77 Resp: 18 Recent fever? N Clinical Suspician of Infection? N Mental Status: 1 - Regular (Normal Baseline) Sepsis Risk:Low Sepsis Risk Have you (or family members/close friends) recently traveled outside the [place]? N If Yes, where/when: Have you had exposure to infectious disease within the past month? N TB? Other? Specify: Source patient, RN notes reviewed, old records Exam Limitations no limitations Comment fell yesterday with back injury with rad to lt lower leg with no rash or fever and no cauda equina sx Cardiac Chest Pain Chest pain indicative of cardiac No Timing/Duration this evening Severity moderate ALLERGIES Coded Allergies: Penicillins (Mild, 03/16/15) Home Medications Reported Medications Gabapentin (Neurontin) 800 MG PO BID History Medical History General CAD? No Angina: No ME: No Hypertension? No Hyperlipidemia? No CHF? No DVT? No PE? No COPD? No Asthma? No Anemia? No GERD? No Gastric ulcers? No GI Bleed? No Hernia? No Thyroid Problems? No Hypothyroidism? No CVA? No Seizures? No Diabetes? No Renal Insuffiency? No End Stage Renal Disease? No UTI? No Stones? No BPH? No GB Disease: No Nephritic Syndrome? No Asplenia? No Hepatitis? No Sickle Cell Disease? No Arthritis? Yes Migraines? No Cataracts? No Glaucoma? No MRSA? No HIV? No TB? No Anxiety? No Depression? No Cancer? No Immunization Hx DT/Tetanus 1-4 YRS Flu NEVER Pneumonia REFUSES Surgical Hx Previous Surgery?Y CYST REMOVAL X 4 HEART CATH Family History Family Hx Diabetes Yes CAD Yes Hypertension Yes Hyperlipidemia Yes Cancer Yes TB No Social History Smoking Hx Smoker: Current Every Day Smoker Tobacco: Yes Type Cigarettes Packs/day < 1 Pack Alcohol Alcohol: No Drugs none Review of Systems All Other Systems Reviewed and Negative Constitutional denies fever Eyes denies drainage ENT denies: ear discharge, epistaxis, throat pain. Respiratory denies cough, denies shortness of breath Cardiovascular denies chest pain, denies syncope Gastrointestinal denies abdominal pain, denies diarrhea, denies vomiting Genitourinary denies: dysuria, frequency, hesitancy, hematuria. Musculoskeletal see HPI, back pain, denies joint pain, denies joint swelling, denies neck pain Skin denies rash Psychiatric/Neurological denies headache, denies seizure Physical Exam Vital Signs Vital Signs Date Time Temp Pulse Resp B/P Pulse O2 O2 Flow FiO2 Ox Delivery Rate 12/19 0226 98.0 77 18 124/74 99 12/19 0111 98.5 62 16 125/69 95 12/19 0018 98.2 76 18 116/70 97 - WBC >12,000 or <4,000 or 10% bands? 2 or more SIRS Criteria Met? B/P:124/74 MAP:85 Creatinine >2.0? UA output<0.5ml/kg/hr for 2 hrs? Platelet count >100,000? Lactate >2.0mmol/1? INR >1.2 or PTT > than 60 sec? Evidence of Organ Dysfunction? Provider documented clinical suspician of infection? N Sepsis Criteria Count: 0 Sepsis Risk: Low Sepsis Risk General Appearance no apparent distress Eye Exam - bilateral eye PERRL, bilateral eye EOMI Ear, Nose, Throat normal ENT inspection Neck supple Respiratory Status No: respiratory distress. Cardiovascular regular rate/rhythm Peripheral Pulses Pulses normal Yes Gastrointestinal soft Back no CVA tenderness, no vertebral tenderness, bowel/bladder continent, gait normal, strt leg raising(L)-ABNL, decreased range of motion Extremities normal inspection, no calf tenderness, pelvis stable Strength 4 Upper Ext (L), 4 Upper Ext (R), 4 Lower Ext (L), 4 Lower Ext (R) Neurologic alert, infusion therapy nurse II-XII nml as tested, no motor/sensory deficits Reflexes Reflexes normal No Mental status normal mood/affect Skin intact, no rash cons.w/shingles Medical Decision Making LABS/Meds/Orders Pt receiving controlled substance in ED? No Results/Orders Orders Procedure Date/time Status DIET-NOTHING BY MOUTH 12/19 B Active PELVIS AP ONLY 12/[address] LUMBAR SPINE W/O CONTRAST 11/[address] SCAN REQ 12/19 010 Active XRAY/CT/US XRAY/CT/US 1 XRAY pelvis XR interpretation by reviewed by me Xray Results no fracture seen XRAY/CT/US 2 CT L-spine CT interpretation by discussed w/radiologist Time results known: 231 CT Results no fracture seen Departure Departure Time of Disposition 223 Disposition DC Home or Self Care(routine) Clinical Impression Primary Impression: Lumbar radiculopathy, acute Condition STABLE Referrals [facility] (Family) Patient Instructions DI for Lumbar Radiculopathy Additional Instructions use meds and see pcp for follow up Discharge Counseling Counseled pt/family regarding diagnosis, test results, medications/RX, follow up needs Prescriptions Current Visit Scripts Prednisone (Prednisone 20MG) 20 MG PO BID #10 TAB Cyclobenzaprine Hcl (Flexeril) 10 MG PO BID #14 TAB ED Critical Care Critical Care No at 0232
[2016-12-19] MEDS ORDERED: FLEXERIL10 MG PO (02:32)
[2016-12-19] MEDS ORDERED: PREDNISONE 20MG20 MG PO (02:32)
[2016-12-19 02:40] VITALS: BP 124/74
--- NOTE | 2016-12-19 21:29 | RADIOLOGY REPORT PS360 ---
PELVIS AP ONLY HISTORY: PAIN pelvic pain. Back pain. Patient Age: 46 years: Male Ordering Physician: Jihan Rodriguez MD TECHNIQUE: AP pelvis COMPARISON :Lumbar spine series from 2010. CT lumbar from today utilized FINDINGS Osseous pelvis is intact . AP view of the hips appear satisfactory hip joint spaces well-maintained the femoral head and neck with satisfactory contour and density. The osseous pelvis otherwise unremarkable SI joints patent. No fracture nor lesion evident. IMPRESSION: Osseous pelvis intact. Negative
--- NOTE | 2016-12-19 21:37 | RADIOLOGY REPORT PS360 ---
CT LUMBAR SPINE W/O CONTRAST HISTORY: LBP fall. Late effect from previous injury. Sacral pain Patient Age: 46 years: Male Ordering Physician: Jihan Rodriguez MD TECHNIQUE: Helical CT scanning performed through the lumbar spine with sagittal coronal reconstructions on CT workstation. COMPARISON :Previous lumbar plain films from 06/09/2010 FINDINGS Vertebral bodies are intact with no compression fracture nor significant lesion. . Images include the majority sacrum with no fracture here.. Inferior most sacral and Coccyx not included SI joints unremarkable. Very subtle ground lucent area at the posterior right iliac bone measures 7.5 mm. Nonspecific as isolated finding & of doubtful significance but noted. If progressive pain this region would encourage follow-up MR lumbar spine to include the upper sacrum. L5/S1 with disc bulge and a generous facet hypertrophy bilaterally most evident the left. These features yield mild foraminal encroachment bilaterally. L4/5 mild disc bulge most evident towards right foramen. This spaces well-maintained. The trace posterior element hypertrophy. Features combine to mild right foraminal encroachment. Unimpressive L3/4 disc intact unremarkable. L2/3 disc intact L1/2 disc intact. The kidneys are partially imaged on this study with no calculi nor obstruction. No retroperitoneal adenopathy. IMPRESSION: ... No acute findings lumbar spine from the bodies appear intact.... Majority sacrum included on this study and is intact. L5/S1 disc bulge with posterior element hypertrophy most evident this level. Yields mild bilateral foraminal encroachment and slight narrowing the central canal. L4/5. Mild disc bulge towards right foramen yields mild right foraminal encroachment. Mild posterior hypertrophy. Only slight narrowing of the central canal. Mild levoscoliosis lumbar spine similar to 2011 exam Additional note. A subtle 7 mm lucent area at the posterior right iliac bone posteriorly SI joint on axial image 45 is barely appreciable and I doubt of significance. However there should be any progressive pain in this area follow-up MR lumbar to include upper sacrum suggested.
== END 2016-12-19 02:51 | disposition home or self-care (01) ==
LOC: ER 00:01
DX: M54.16 Radiculopathy, lumbar region (principal)